=== PATIENT | male | born 1975 | race African-American/Black ===

== ENCOUNTER 2017-03-04 14:04 | Emergency (ER) | payer OTHER ==
[~2017-03-04] VITALS: Ht 182.9 cm; Wt 98.0 kg
[~2017-03-04 14:04] MED LIST: SOMA
[2017-03-04] MEDS ORDERED: SODIUM CHLORIDE 0.9% 1,000 ML IV ONE (16:49)
[2017-03-04] MEDS ORDERED: FAMOTIDINE 20MG TABLET PO ONE (17:00)
[2017-03-04] MEDS ORDERED: MAGNESIUM/ALUMINUM HYDROXIDE/SIMETHICONE 30ML UDC PO ONE (17:00)
[2017-03-04 17:15] LABS: CHLORIDE 106 mEq/L (98-107)
[2017-03-04 17:17] LABS: PROTHROMBIN TIME 10.2 sec
[2017-03-04 17:18] LABS: BASOPHILS % 0.5 % (0.0-2.0); EOSINOPHILS % 0.7 % (0.0-5.0); HEMATOCRIT. 43.4 % (42.0-52.0); HEMOGLOBIN. 14.9 g/dL (14.0-18.0); MEAN CORPUSCULAR HEMOGLOBIN 35.7 pg (28.0-32.0); MEAN PLATELET VOLUME 7.4 fl (7.4-10.4); MONOCYTES % 10.8 % (2.0-8.0); PLATELET 169 x1000/uL (130-400); RED BLOOD CELL COUNT 4.17 mill/uL (4.7-6.1); RED CELL DISTRIBUTION WIDTH 13.9 % (11.6-14.6)
[2017-03-04 17:23] LABS: CARBON DIOXIDE 29 mEq/L (21-32); ETHANOL BLOOD < 10 mg/dL
[2017-03-04 17:26] LABS: TROPONIN I < 0.02 ng/mL (0.00-0.04)
[2017-03-04 19:11] VITALS: BP 121/76
== END 2017-03-04 19:15 | disposition home or self-care (01) ==
LOC: ER 18:09
DX: R07.89 Other chest pain (principal); R06.02 Shortness of breath; F10.10 Alcohol abuse, uncomplicated; Z88.0 Allergy status to penicillin; Z98.890 Other specified postprocedural states; Z87.828 Personal history of other (healed) physical injury and trauma
CPT/HCPCS: 36415; 71010; 80053; 83605; 83690; 83880; 84484; 85025; 85610; 93005; 96360; 99285; G0482; J7030; Z7610

== ENCOUNTER 2017-06-25 01:46 | Emergency (ER) | payer OTHER ==
[~2017-06-25] VITALS: Ht 182.9 cm; Wt 100.0 kg
[2017-06-25 05:32] VITALS: BP 132/86
[2017-06-25] MEDS ORDERED: KETOROLAC 60MG/2ML VIAL IM ONE (06:45)
== END 2017-06-25 07:20 | disposition home or self-care (01) ==
LOC: ER 05:58
DX: H66.91 Otitis media, unspecified, right ear (principal); H60.91 Unspecified otitis externa, right ear; F17.200 Nicotine dependence, unspecified, uncomplicated; F12.10 Cannabis abuse, uncomplicated; Z88.0 Allergy status to penicillin
CPT/HCPCS: 96372; 99283; J1885

== ENCOUNTER 2019-09-24 07:16 | Emergency (ER) | payer BC, OTHER ==
[~2019-09-24] VITALS: Ht 182.9 cm; Wt 100.0 kg
[2019-09-24 07:23] VITALS: BP 137/94
== END 2019-09-24 08:29 | disposition home or self-care (01) ==
LOC: ER 07:16
DX: L20.9 Atopic dermatitis, unspecified (principal); F17.290 Nicotine dependence, other tobacco product, uncomplicated; Z88.0 Allergy status to penicillin
CPT/HCPCS: 99282

== ENCOUNTER 2022-04-17 15:38 | Emergency (ER) | payer BC ==
[~2022-04-17] VITALS: Ht 182.9 cm; Wt 92.0 kg
[2022-04-17 15:41] VITALS: BP 156/97
[2022-04-17] MEDS ORDERED: FAMOTIDINE 20MG TABLET PO NR (20:15)
[2022-04-17] MEDS ORDERED: FAMOTIDINE 20MG TABLET PO ONE (20:15)
[2022-04-17 20:38] LABS: BASOPHILS % 0.6 % (0.0-2.0); EOSINOPHILS % 1.2 % (0.0-5.0); HEMATOCRIT. 43.2 % (42.0-52.0); HEMOGLOBIN. 14.7 g/dL (14.0-18.0); LYMPHOCYTES % 49.5 % (20.0-50.0); MEAN CORPUSCULAR HEMOGLOBIN 35.7 pg (28.0-32.0); MEAN CORPUSCULAR VOLUME 104.9 fL (80.0-94.0); MEAN PLATELET VOLUME 7.4 fl (7.4-10.4); MONOCYTES % 8.3 % (2.0-8.0); NEUTROPHILS % 40.4 % (40.0-76.0); PLATELET 227 x1000/uL (130-400); RED BLOOD CELL COUNT 4.11 mill/uL (4.7-6.1); RED CELL DISTRIBUTION WIDTH 13.8 % (11.6-14.6)
[2022-04-17 20:45] LABS: CHLORIDE 106 mEq/L (98-107)
[2022-04-17] MEDS ORDERED: FAMO-135 MT (23:32)
[2022-04-17 23:36] LABS: CLARITY URINE CLEAR (CLEAR); COLOR URINE YELLOW (YELLOW); KETONES URINE 3+ (NEGATIVE); LEUKOCYTE ESTERASE URINE NEGATIVE (NEGATIVE); NITRITE URINE NEGATIVE (NEGATIVE); OCCULT BLOOD URINE NEGATIVE (NEGATIVE); PROTEIN URINE NEGATIVE (NEGATIVE); SPECIFIC GRAVITY URINE 1.027 (1.005-1.030); UROBILINOGEN URINE 0.2 E.U./dL (0.2-1.0)
== END 2022-04-18 00:46 | disposition home or self-care (01) ==
LOC: ER 15:38
DX: K62.5 Hemorrhage of anus and rectum (principal); R10.13 Epigastric pain; Z86.711 Personal history of pulmonary embolism; Z79.01 Long term (current) use of anticoagulants; Z98.890 Other specified postprocedural states; Z88.0 Allergy status to penicillin
CPT/HCPCS: 36415; 76700; 80053; 81003; 85025; 93005; 99285

== ENCOUNTER 2025-04-16 02:27 | Emergency (ER) | payer BC, MEDICAID ==
[~2025-04-16] VITALS: Ht 182.9 cm; Wt 98.0 kg
[~2025-04-16 02:27] MED LIST changes: +FAMO-135 MT; -SOMA
[2025-04-16 02:35] VITALS: O2SAT 97
[2025-04-16] MEDS: KETOROLAC 15MG/ML VIAL IM ONE (03:51)
[2025-04-16 05:00] VITALS: BP 117/68; PULSE 80; RESP 18; TEMP 36.7; O2SAT 99
[2025-04-16] MEDS ORDERED: NAPR-1176 MT (05:09)
[2025-04-16] MEDS ORDERED: LIDO-53 TP (05:09)
== END 2025-04-16 05:27 | disposition home or self-care (01) ==
LOC: ER 02:27
DX: M79.5 Residual foreign body in soft tissue (principal); M25.552 Pain in left hip; Z79.1 Long term (current) use of non-steroidal anti-inflammatories (NSAID); Z88.0 Allergy status to penicillin; Z79.899 Other long term (current) drug therapy; Z98.890 Other specified postprocedural states; W45.8XXA Other foreign body or object entering through skin, initial encounter; Y93.89 Activity, other specified; Y92.89 Other specified places as the place of occurrence of the external cause; Y99.8 Other external cause status
CPT/HCPCS: 73502; 96372; 99283; J1885; Z7610; 99284